=== PATIENT | female | born 1995 | race African-American/Black ===

== ENCOUNTER 2020-02-24 13:15 | Emergency (ER) | payer MEDICAID ==
--- NOTE | 2020-02-24 13:59 | ER Document Report ---
ED Medical Screen (RME) - General Chief Complaint: Dizziness Stated Complaint: DIZZINESS Notes: Patient is a 24-year-old Afro-[place] female who is G1, P0 at approximately 23 weeks gestation who reports care with an OB with a prior normal ultrasound who presents to the emergency department today with a chief complaint of "dizziness" for the past 2 weeks. She states that up to this point is been very normal. She states that she called her doctor with these episodes of dizziness and she advised if they did not improve to come to the ER for evaluation. She describes them as episodes of feeling suddenly very tired and weak. She denies ever having any loss of consciousness or syncopal episodes. She denies any visual disturbances, headaches or neck pain. She denies any chest pain or shortness of breath. She denies abdominal pain or vaginal bleeding. She does add that she has had some increased urinary frequency lately but attributes that to the . I have treated and performed a rapid initial assessment of this patient. A comprehensive ED assessment and evaluation of the patient, analysis of test results and completion of medical decision making process will be conducted by additional ED providers. PHYSICAL EXAMINATION: GENERAL: Well-appearing, well-nourished and in no acute distress. A&Ox4. Answers questions appropriately. - Related Data Allergies/Adverse Reactions: Fish Containing Products Allergy (Verified 02/24/20 13:57) tree nut Allergy (Verified 02/24/20 13:57) Physical Exam - Vital signs Vitals: Temp Pulse Resp BP Pulse Ox 98.8 F 92 14 125/75 98 02/24/20 13:27 02/24/20 13:27 02/24/20 13:27 02/24/20 13:27 02/24/20 13:27 Course - Vital Signs Vital signs: Temp Pulse Resp BP Pulse Ox 98.8 F 92 14 125/75 98 02/24/20 13:27 02/24/20 13:27 02/24/20 13:27 02/24/20 13:27 02/24/20 13:27
[2020-02-24 14:35] LABS: ABSOLUTE BASOPHILS # (AUTO) 0.1 10^3/uL (0.0-0.2); ABSOLUTE EOSINOPHILS # (AUTO) 0.7 10^3/uL (0.0-0.6); ABSOLUTE LYMPHOCYTES (AUTO) 2.2 10^3/uL (0.5-4.7); ABSOLUTE MONOCYTES (AUTO) 0.5 10^3/uL (0.1-1.4); ABSOLUTE NEUT (AUTO) 7.8 10^3/uL (1.7-8.2); BASOPHILS % (AUTO) 0.6 % (0-2); EOSINOPHILS % (AUTO) 6.1 % (0-6); HEMATOCRIT 36.7 % (36.0-47.0); HEMOGLOBIN 12.8 g/dL (12.0-15.5); LYMPHOCYTES % (AUTO) 19.8 % (13-45); MEAN CORPUSCULAR HGB CONC 34.8 g/dL (32.0-36.0); MEAN CORPUSCULAR VOLUME 89 fl (80-97); MONOCYTES % (AUTO) 4.8 % (3-13); PLATELET COUNT 239 10^3/uL (150-450); RED BLOOD COUNT 4.12 10^6/uL (3.72-5.28); RED CELL DISTRIBUTION WIDTH 13.1 % (11.5-14.0); SEGMENTED NEUTROPHILS % (AUTO) 68.7 % (42-78); TOTAL CELLS COUNTED % (AUTO) 100 %; WHITE BLOOD COUNT 11.4 10^3/uL (4.0-10.5)
[2020-02-24 14:40] LABS: APPEARANCE,URINE SLIGHTLY-CLOUDY; BILIRUBIN,URINE NEGATIVE (NEGATIVE); COLOR,URINE YELLOW; GLUCOSE, URINE NEGATIVE (NEGATIVE); KETONES,URINE NEGATIVE (NEGATIVE); PROTEIN,URINE 30 mg/dL (NEGATIVE); URINE SPECIFIC GRAVITY 1.021
[2020-02-24 14:42] LABS: INTERNATIONAL RATION (INR) 0.95; PROTHROMBIN TIME 12.7 SEC (11.4-15.4)
[2020-02-24 14:43] LABS: PARTIAL THROMBOPLASTIN TIME 26.9 SEC (23.5-35.8)
[2020-02-24 14:56] LABS: ALBUMIN 3.6 g/dL (3.5-5.0); ALKALINE PHOSPHATASE 56 U/L (38-126); ANION GAP 5 (5-19); ASPARTATE AMINO TRANSFERASE 27 U/L (14-36); BILIRUBIN,TOTAL 0.3 mg/dL (0.2-1.3); BLOOD UREA NITROGEN 5 mg/dL (7-20); CALCIUM 9.2 mg/dL (8.4-10.2); CARBON DIOXIDE 25 mmol/L (22-30); CHLORIDE 103 mmol/L (98-107); CREATINE KINASE 41 U/L (30-135); GLUCOSE 86 mg/dL (75-110); TOTAL PROTEIN 6.7 g/dL (6.3-8.2)
[2020-02-24] MEDS ORDERED: NORMAL SALINE 1000 ML 1,000 ML IV ONE (15:10)
--- NOTE | 2020-02-24 15:51 | ER Document Report ---
ED General - General Chief Complaint: Dizziness Stated Complaint: DIZZINESS Time Seen by Provider: 02/24/20 15:10 Mode of Arrival: Ambulatory Information source: Patient TRAVEL OUTSIDE OF THE [place] IN LAST 30 DAYS: No - HPI Onset: Other - over the last few weeks Onset/Duration: Gradual Quality of pain: No pain Severity: Moderate Pain Level: Denies Associated symptoms: Nausea, Weakness, Other - Dizziness Exacerbated by: Other - standing up Relieved by: Other - laying down Similar symptoms previously: No Recently seen / treated by doctor: Yes - patient had been seen by her FILLER IN recently and she has had normal OB US's Notes: 24 year old female who is 23 weeks here in the ER for several weeks of dizziness and light headedness. The patient has seen her FILLER IN Doctor and she has had an ultrasound showing a normal . The patient denies fevers, chills, sweats, vomiting, diarrhea, abdominal pain, pelvic pain, vaginal bleeding, vaginal discharge. - Related Data Allergies/Adverse Reactions: Fish Containing Products Allergy (Verified 02/24/20 13:57) tree nut Allergy (Verified 02/24/20 13:57) Past Medical History - General Information source: Patient - Social History Smoking Status: Never Smoker Frequency of alcohol use: None Drug Abuse: None Lives with: Spouse/Significant other Family History: Reviewed & Not Pertinent Patient has suicidal ideation: No Patient has homicidal ideation: No Review of Systems - Review of Systems Constitutional: No symptoms reported EENT: No symptoms reported Cardiovascular: No symptoms reported Respiratory: No symptoms reported Gastrointestinal: No symptoms reported Genitourinary: No symptoms reported Female Genitourinary: No symptoms reported Musculoskeletal: No symptoms reported Skin: No symptoms reported Hematologic/Lymphatic: No symptoms reported Neurological/Psychological: Other - Dizziness -: Yes All other systems reviewed and negative Physical Exam - Vital signs Vitals: Temp Pulse Resp BP Pulse Ox 98.8 F 92 14 125/75 98 02/24/20 13:27 02/24/20 13:27 02/24/20 13:27 02/24/20 13:27 02/24/20 13:27 - Notes Notes: GENERAL: Well-appearing, well-nourished and in no acute distress. HEAD: Atraumatic, normocephalic. EYES: Pupils equal round and reactive to light, extraocular movements intact, sclera anicteric, conjunctiva are normal. ENT: External ears normal, nares patent, oropharynx clear without exudates. Moist mucous membranes. NECK: Normal range of motion, supple without lymphadenopathy or JVD. LUNGS: Breath sounds clear to auscultation bilaterally and equal. No wheezes rales or rhonchi. HEART: Regular rate and rhythm without murmurs, rubs or gallops. ABDOMEN: Soft, nontender, normoactive bowel sounds. No guarding, no rebound. No masses appreciated. : Gravid appearance EXTREMITIES: Normal range of motion, no pitting or edema. No clubbing or cyanosis. NEUROLOGICAL: Cranial nerves II through XII grossly intact. Normal speech, n ormal gait. PSYCH: Normal mood, normal affect. SKIN: Warm, Dry, normal turgor, no rashes or lesions noted. Course - Re-evaluation Re-evalutation: 02/24/20 16:40 The patient is here for dizziness in the setting of being . She has had some nausea and she tells me she probably hasnt been eating or drinking enough lately. The patient appears well in the ER and her labs and UA are unremarkable. Patient was treated with IV fluids as she was somewhat orthostatic and she was told to orally hydrate more at home. Patient also told to follow up with her FILLER IN. The patient has not actually passed out from being dizzy and she has not had shortness of breath or trouble breathing. - Vital Signs Vital signs: Temp Pulse Resp BP Pulse Ox 98.8 F 80 14 93/69 L 98 02/24/20 13:52 02/24/20 15:38 02/24/20 13:27 02/24/20 15:38 02/24/20 13:27 - Laboratory Result Diagrams: 02/24/20 14:19 02/24/20 14:19 Laboratory results interpreted by me: 02/24/20 02/24/20 02/24/20 14:19 14:19 14:19 WBC 11.4 H Eos % (Auto) 6.1 H Absolute Eos (auto) 0.7 H Sodium 133.2 L BUN 5 L Beta HCG, Quant 09928.00 H Urine Protein 30 H Urine Urobilinogen 2.0 H Discharge - Discharge Clinical Impression: Dehydration Condition: Stable Disposition: HOME, SELF-CARE Instructions: Dehydration ([facility]), Dizziness ([facility]) Additional Instructions: Drink plenty of fluids in the days to come. Follow up with your FILLER IN Doctor and tell him/her about your ER visit for dizziness.
[2020-02-24 17:13] VITALS: BP 110/74
--- NOTE | 2020-02-25 10:01 | EKG REPORT ---
SEVERITY:- NORMAL ECG - SINUS RHYTHM : Confirmed by: Philipp Pederson 25-Feb-2020 09:59:06
== END 2020-02-24 17:13 | disposition home or self-care (01) ==
LOC: ER 13:15
DX: O26.892 Other specified pregnancy related conditions, second trimester (principal); E86.0 Dehydration; R42 Dizziness and giddiness; R11.0 Nausea; Z3A.23 23 weeks gestation of pregnancy
CPT/HCPCS: 93005; 99284; 96360; 36415; 82550; 84702; 85025; 85610; 85730; 80053; 81001; 84484; 93010; J7030

== ENCOUNTER 2020-05-09 18:50 | Outpatient (CLI) | payer BC, MEDICAID ==
[2020-05-09 19:34] LABS: APPEARANCE,URINE CLEAR; BILIRUBIN,URINE NEGATIVE (NEGATIVE); CALCIUM OXALATE CRYSTALS,URINE FEW /HPF; COLOR,URINE YELLOW; GLUCOSE, URINE NEGATIVE (NEGATIVE); KETONES,URINE NEGATIVE (NEGATIVE); LEUKOCYTE ESTERASE,URINE NEGATIVE (NEGATIVE); NITRITE,URINE NEGATIVE (NEGATIVE); PROTEIN,URINE 30 mg/dL (NEGATIVE); URINE SPECIFIC GRAVITY 1.027
[2020-05-09 19:44] LABS: URINE AMPHETAMINES SCREEN NEGATIVE; URINE BARBITURATES SCREEN NEGATIVE; URINE BENZODIAZEPINES SCREEN NEGATIVE; URINE COCAINE SCREEN NEGATIVE; URINE MARIJUANA (THC) SCREEN NEGATIVE; URINE METHADONE SCREEN NEGATIVE; URINE PHENCYCLIDINE SCREEN NEGATIVE
--- NOTE | 2020-05-09 20:00 | Non Stress Test Report ---
Non Stress Test Datetime Report Generated by CPN: 05/09/2020 20:00 DEMOGRAPHIC EGA NST: 34.0 MONITORING Monitor Explained: Monitor Explained; Test Explained; Patient Verbalized Understanding Time on Monitor: 05/09/2020 19:30 Time off Monitor: 05/09/2020 19:58 NST INTERVENTIONS NST Interventions: PO Hydration; Reposition Patient Physician Notified NST: Dr Stevenson BABY A: [id number] BABY A Movement : Present Contraction Frequency : 0 FHR Baseline : 140 Accelerations : 15X15 Decelerations : None Variability : Moderate 6-25bpm NST Review: Meets Criteria for Reactive NST NST Review and Verified By : RAFFY Romero Results: Reactive NST REPORT Report Trigger: Send Report
== END 2020-05-09 21:20 | disposition home or self-care (01) ==
LOC: LC 18:50
PROVIDERS: ATTEND Obstetrics & Gynecology Gynecology
DX: O36.8130 Decreased fetal movements, third trimester, not applicable or unspecified (principal); Z3A.34 34 weeks gestation of pregnancy
CPT/HCPCS: 59025; 80307; 81001

== ENCOUNTER 2020-05-26 11:50 | Emergency (ER) | payer BC, MEDICAID ==
[2020-05-26 11:55] VITALS: BP 126/55
--- NOTE | 2020-05-26 12:29 | ER Document Report ---
ED Medical Screen (RME) - General Chief Complaint: Vomiting Stated Complaint: VOMITING BLOOD,LIGHTHEADED Time Seen by Provider: 05/26/20 12:25 Primary Care Provider: YAMIL LAY MD [Primary Care Provider] - Follow up as needed TRAVEL OUTSIDE OF THE [place] IN LAST 30 DAYS: No - HPI Notes: 05/26/20 12:28 24-year-old female G1, P0 to the emergency department with complaints of nausea and vomiting that got significantly worse today with one episode of diarrhea. She states she is about 36 weeks . She states that she has been throwing up for most of her . She states she called her [employer] PROCESS PLANT OPERATOR today and they felt like she was possibly dehydrated and wanted her to come to the emergency department for fluids. She denies any vaginal bleeding. She states that she does have a little bit of cramping especially when she is throwing up. She denies any fevers, chills, cough, body aches. I performed a brief medical screening exam on the patient determined that the patient needs further evaluation and management by main side provider. I have placed initial orders to help expedite care. - Related Data Allergies/Adverse Reactions: Fish Containing Products Allergy (Verified 05/09/20 19:08) tree nut Allergy (Verified 05/09/20 19:08) Physical Exam - Vital signs Vitals: Temp Pulse Resp BP Pulse Ox 98.2 F 97 20 126/55 H 99 05/26/20 11:54 05/26/20 11:54 05/26/20 11:54 05/26/20 11:54 05/26/20 11:54 Course - Vital Signs Vital signs: Temp Pulse Resp BP Pulse Ox 98.2 F 97 20 126/55 H 99 05/26/20 11:54 05/26/20 11:54 05/26/20 11:54 05/26/20 11:54 05/26/20 11:54 Doctor's Discharge - Discharge Referrals: YAMIL LAY MD [Primary Care Provider] - Follow up as needed
[2020-05-26] MEDS ORDERED: METOCLOPRAMIDE HCL INJ/PF 10 MG/2 ML SDV IV ONE (12:30)
[2020-05-26] MEDS ORDERED: NORMAL SALINE 1000 ML 1,000 ML IV ONE ×2 (12:30→13:55)
[2020-05-26 13:10] LABS: ABSOLUTE EOSINOPHILS # (AUTO) 0.3 10^3/uL (0.0-0.6); ABSOLUTE LYMPHOCYTES (AUTO) 1.8 10^3/uL (0.5-4.7); ABSOLUTE MONOCYTES (AUTO) 0.7 10^3/uL (0.1-1.4); ABSOLUTE NEUT (AUTO) 8.2 10^3/uL (1.7-8.2); BASOPHILS % (AUTO) 0.4 % (0-2); EOSINOPHILS % (AUTO) 2.4 % (0-6); HEMATOCRIT 36.4 % (36.0-47.0); HEMOGLOBIN 12.5 g/dL (12.0-15.5); LYMPHOCYTES % (AUTO) 16.4 % (13-45); MEAN CORPUSCULAR HGB CONC 34.4 g/dL (32.0-36.0); MEAN CORPUSCULAR VOLUME 87 fl (80-97); MONOCYTES % (AUTO) 6.1 % (3-13); PLATELET COUNT 233 10^3/uL (150-450); RED BLOOD COUNT 4.16 10^6/uL (3.72-5.28); RED CELL DISTRIBUTION WIDTH 13.3 % (11.5-14.0); SEGMENTED NEUTROPHILS % (AUTO) 74.7 % (42-78); TOTAL CELLS COUNTED % (AUTO) 100 %
[2020-05-26 13:12] LABS: APPEARANCE,URINE SLIGHTLY-CLOUDY; BILIRUBIN,URINE NEGATIVE (NEGATIVE); COLOR,URINE YELLOW; GLUCOSE, URINE NEGATIVE (NEGATIVE); KETONES,URINE NEGATIVE (NEGATIVE); LEUKOCYTE ESTERASE,URINE NEGATIVE (NEGATIVE); NITRITE,URINE NEGATIVE (NEGATIVE); PROTEIN,URINE 100 mg/dL (NEGATIVE)
[2020-05-26 13:28] LABS: ALBUMIN 3.2 g/dL (3.5-5.0); ALKALINE PHOSPHATASE 110 U/L (38-126); ANION GAP 6 (5-19); ASPARTATE AMINO TRANSFERASE 29 U/L (14-36); BILIRUBIN,DIRECT 0.2 mg/dL (0.0-0.4); BILIRUBIN,TOTAL 0.4 mg/dL (0.2-1.3); BLOOD UREA NITROGEN 3 mg/dL (7-20); CALCIUM 8.5 mg/dL (8.4-10.2); CARBON DIOXIDE 20 mmol/L (22-30); CHLORIDE 108 mmol/L (98-107); GLUCOSE 87 mg/dL (75-110); POTASSIUM 3.9 mmol/L (3.6-5.0); TOTAL PROTEIN 6.4 g/dL (6.3-8.2)
--- NOTE | 2020-05-26 14:26 | ER Document Report ---
ED General - General Chief Complaint: Nausea/Vomiting Stated Complaint: VOMITING BLOOD,LIGHTHEADED Time Seen by Provider: 05/26/20 12:25 Primary Care Provider: YAMIL LAY MD [Primary Care Provider] - Follow up as needed TRAVEL OUTSIDE OF THE [place] IN LAST 30 DAYS: No - HPI Notes: Chief complaint: Vomiting History of present illness: 24-year-old female 1 para 0 at 36 weeks EGA vomiting intermittently for past 2 weeks. Nurse marketing operations coordinator advised her to come to the ED because she thought she was getting dehydrated and felt she needed to get IV fluids. She has no fever, chills, dysuria or abdominal pain. She is having no contractions. No vaginal discharge or vaginal bleeding. She is feeling normal movement. She has had no past surgery. - Related Data Allergies/Adverse Reactions: Fish Containing Products Allergy (Verified 05/26/20 14:11) tree nut Allergy (Verified 05/26/20 14:11) Home Medications: Vitamins Past Medical History - General Information source: Patient, [facility] Records - Social History Smoking Status: Unknown if Ever Smoked Frequency of alcohol use: None Drug Abuse: None Lives with: Family Family History: Reviewed & Not Pertinent - Medical History Medical History: Negative Past Surgical History: Reports: None Review of Systems - Review of Systems Notes: Constitutional: Negative for fever. HENT: Negative for sore throat. Eyes: Negative for visual changes. Cardiovascular: Negative for chest pain. Respiratory: Negative for shortness of breath. Gastrointestinal: As per HPI. Genitourinary: As per HPI. Musculoskeletal: Negative for back pain. Skin: Negative for rash. Neurological: Negative for headaches, weakness or numbness. 10 point ROS negative except as marked above and in HPI. Physical Exam - Vital signs Vitals: Temp Pulse Resp BP Pulse Ox 98.2 F 97 20 126/55 H 99 05/26/20 11:54 05/26/20 11:54 05/26/20 11:54 05/26/20 11:54 05/26/20 11:54 - Notes Notes: GENERAL: Well-developed well-nourished female approximately stated age appearing in no acute distress. SKIN: Good turgor no rashes. HEAD: Normocephalic atraumatic. EYES: PERRLA. EOMI. Conjunctivae and sclerae clear. EARS: CANALS AND TMS CLEAR. NOSE: CLEAR. MOUTH: Moist mucosa. Good dentition. No stridor or edema. No drooling. NECK: Supple. No masses or thyromegaly. No adenopathy. Carotids 2+ without bruits. No JVD. BACK: Symmetrical without tenderness. CHEST: Respirations unlabored. Breath sounds clear and symmetrical. HEART: Regular rhythm. No murmur gallop or rub. ABDOMEN: Gravid uterus consistent with dates. Positive FHT 140 by Doppler left lower quadrant. Soft nontender without masses, hepatosplenomegaly or rebound. Bowel sounds normally active. No bruits. GENITALIA: Deferred. EXTREMITIES: No edema. No calf tenderness. Cap refill less than 1.5 seconds. Dorsalis pedis and posterior tibial pulses 3+ and symmetrical. NEUROLOGICAL: GCS 15. Alert and oriented x3. Normal gait. Fluent speech. Cranial nerves II through XII intact. Sensorimotor and cerebellar normal. Normal tone. PSYCHIATRIC: Appropriate affect. Course - Re-evaluation Re-evalutation: 05/26/20 15:06 Received 2 L normal saline here. She is taking food and fluids here without any difficulty. Abdominal exam is totally benign. 05/26/20 15:07 heart tone is good. Urinalysis slightly concentrated but no ketones present. CBC and chemistry profile unremarkable. Patient appears to be stable for outpatient follow-up with PROCESS OPERATOR and I will give her some Reglan for as needed use. 05/26/20 15:08 Findings, clinical impression and plan of treatment have been discussed with patient/family. Understanding of current findings and recommendations has been acknowledged by them and there is agreement regarding disposition and follow-up. - Vital Signs Vital signs: Temp Pulse Resp BP Pulse Ox 98.2 F 97 20 126/55 H 99 05/26/20 11:54 05/26/20 11:54 05/26/20 11:54 05/26/20 11:54 05/26/20 11:54 - Laboratory Result Diagrams: 05/26/20 12:52 05/26/20 12:52 Laboratory results interpreted by me: 05/26/20 05/26/20 05/26/20 12:52 12:52 12:52 WBC 11.0 H Sodium 134.0 L Chloride 108 H Carbon Dioxide 20 L BUN 3 L Creatinine 0.51 L Albumin 3.2 L Urine Protein 100 H Urine Urobilinogen 2.0 H Discharge - Discharge Clinical Impression: Dehydration, IUP at 36 weeks EGA Vomiting Qualifiers: Vomiting type: unspecified Vomiting Intractability: non-intractable Nausea presence: with nausea Qualified Code(s): R11.2 - Nausea with vomiting, unspecified Condition: Stable Disposition: HOME, SELF-CARE Additional Instructions: Increase oral fluids. Take prescribed medication as needed for nausea. Return here as needed for new or worsening symptoms: Pain that is worsening or unimproved Uncontrolled vomiting High fever or shaking chills Abdominal pain Vaginal bleeding Overall worsening Prescriptions: Metoclopramide HCl [Reglan 10 mg Tablet] 1 tab PO ASDIR PRN #12 tablet PRN Reason: Referrals: YAMIL LAY MD [Primary Care Provider] - Follow up as needed
== END 2020-05-26 15:27 | disposition home or self-care (01) ==
LOC: ER 11:50
DX: O21.9 Vomiting of pregnancy, unspecified (principal); O26.893 Other specified pregnancy related conditions, third trimester; E86.0 Dehydration; Z3A.36 36 weeks gestation of pregnancy
CPT/HCPCS: 99284; 96361; 96374; 36415; 85025; 80053; 81001; J2765; J7030